=== PATIENT | female | born 1965 | race Caucasian/White ===

== ENCOUNTER 2016-09-21 11:59 | Emergency (ER) | payer BC ==
[~2016-09-21] VITALS: Ht 157.5 cm; Wt 68.6 kg
[~2016-09-21 11:59] MED LIST: ASCORBIC ACID500 M3 PO; AZITHROMYCIN500 M1 PO; DAILY VALUE1 EACH PO; FLEXERIL5 MG PO; MULTIPLE VITAM1 EACH PO; NAPROSYN500 MG PO; NEXIUM40 MG PO; VICODIN 5-3001 EACH PO; VITAMIN B12-FO1 EACH PO; WELLBUTRIN SR150 MG PO
[2016-09-21] MEDS ORDERED: VENLAFAXINE HC150 M1 PO (13:32)
[2016-09-21] MEDS ORDERED: SUMATRIPTAN SU100 MG PO (13:33)
[2016-09-21] MEDS ORDERED: VENLAFAXINE HCL75 M3 PO (13:33)
[2016-09-21] MEDS ORDERED: ESOMEPRAZOLE MA40 MG PO (13:34)
[2016-09-21] MEDS ORDERED: PREDNISONE50 MG PO (14:53)
[2016-09-21] MEDS ORDERED: TESSALON PERLE100 MG PO (14:53)
[2016-09-21 15:19] VITALS: BP 110/78
== END 2016-09-21 15:21 | disposition home or self-care (01) ==
LOC: RME 11:59 → EME 11:59 → RME 15:21
DX: J06.9 Acute upper respiratory infection, unspecified (principal)
CPT/HCPCS: 71020; 87651 90; 99281; 99285